=== PATIENT | female | born 1960 | race Caucasian/White ===

== ENCOUNTER 2016-06-24 08:05 | Emergency (ER) | payer MEDICAID, OTHER ==
[~2016-06-24] VITALS: Ht 162.6 cm; Wt 70.4 kg
[2016-06-24] MEDS ORDERED: ASPIRIN 81 MG TABLET CHEW PO ONE (09:30)
[2016-06-24 09:31] LABS: HEMOGLOBIN 14.1 g/dL (11.7-16.4)
[2016-06-24] MEDS ORDERED: ASPIRIN 81 MG TABLET CHEW ONE (09:42)
[2016-06-24 09:49] LABS: ASPARTATE AMINO TRANSFERASE 11 U/L (15-37); BLOOD UREA NITROGEN 14 mg/dL (7-18)
[2016-06-24 09:54] LABS: IS PT STATUS REG ER OR PRE ER? YES
[2016-06-24 12:20] VITALS: BP 144/78
== END 2016-06-24 12:24 | disposition home or self-care (01) ==
LOC: ED 09:07
DX: R07.89 Other chest pain (principal); Z90.710 Acquired absence of both cervix and uterus
CPT/HCPCS: 36415; 71010; 80053; 84484; 85025; 85379; 93005; 99285